=== PATIENT | female | born 1965 | race Two or more races ===

== ENCOUNTER 2020-12-12 02:16 | Inpatient (IN) | payer BC, OTHER ==
[~2020-12-12] VITALS: Ht 182.9 cm; Wt 150.1 kg
--- NOTE | 2020-12-12 03:19 | NUR ---
Patient's mother, Krystal Santizo. phone# [phone]
[2020-12-12 03:21] LABS: CREATININE 2.7 mg/dL (0.6-1.3); POTASSIUM 3.8 mmol/L (3.5-5.1)
--- NOTE | 2020-12-12 03:25 | NUR ---
Reached out to [facility] for medical records. states they will fax over.
[2020-12-12 03:28] LABS: HEMATOCRIT 33.1 % (31.2-41.9); MEAN CORPUSCULAR VOLUME 94.1 fL (75.5-95.3); PLATELET COUNT (AUTO) 230 K/uL (179-408)
--- NOTE | 2020-12-12 04:09 | NUR ---
Pt. admitted to Telemetry, under care of Frieda Hernandez. Dx: Dysarthria, CKD Belongs List completed
[2020-12-12] MEDS ORDERED: METO25TA6 PO (04:16)
[2020-12-12] MEDS ORDERED: CLOP75TA15 PO (04:16)
[2020-12-12] MEDS ORDERED: IRON18TA PO (04:16)
[2020-12-12] MEDS ORDERED: ATOR40TA PO (04:16)
[2020-12-12] MEDS ORDERED: BUPR100T5 PO (04:16)
[2020-12-12] MEDS ORDERED: CHOL400T32 PO (04:16)
[2020-12-12] MEDS ORDERED: VENL75TA4 PO (04:16)
[2020-12-12] MEDS ORDERED: AMLO10TA59 PO (04:16)
[2020-12-12] MEDS ORDERED: LEVO25TA9 PO (04:16)
[2020-12-12] MEDS ORDERED: SPIR25TA6 PO (04:16)
[2020-12-12] MEDS ORDERED: OLAN10TA23 PO (04:16)
[2020-12-12] MEDS ORDERED: HYDR-4075 PO (04:16)
--- NOTE | 2020-12-12 05:16 | NUR ---
Patient brought to Tele unit from ER via gurney accompanied Er nurse.Dx of Dysathria and CRF. AALOx4 .No c/o pain at this time .Denies SOB. On Ra saturating well.Iv on left FA 18 no s/s of infiltration noted. Patient ambulates to bathroom, urinating well.Per patient she had BM yesterday afternoon.SNR on Tele.Skin is intact. Safety measures in place.Call light with in reach. Will endorse to oncoming shift.
[2020-12-12 05:20] VITALS: BP 118/73
[2020-12-12] MEDS ORDERED: BLOOD SUGAR DIAGNOSTIC 1 EACH STRIP VI SCH ×2 (06:00→07:30)
--- NOTE | 2020-12-12 07:32 | NUR ---
Swallow screen done no coughing noted ,able to swallow.Notified Mary Malave to start cardiac diet and Also made aware of patient's admission and to reconcile medication.Stated to follow up in A.M .Endorse to A.m nurse.
[2020-12-12] MEDS: ASPIRIN EC 81 MG TABLET.DR PO SCH (08:26)
[2020-12-12] MEDS ORDERED: VENLAFAXINE HCL 225 MG PO SCH (10:30)
[2020-12-12] MEDS ORDERED: VENL150T PO (10:51)
[2020-12-12] MEDS ORDERED: VENL75TA74 PO (10:51)
[2020-12-12] MEDS: IV 1/2NS 1000 ML 1,000 ML IV PRN (10:53)
--- NOTE | 2020-12-12 11:00 | NUR ---
PHYSICAL THERAPY HERE AND SEEN PATIENT AND SHE AMBULATED IN THE HALLWAY WITH SLOW BUT STEADY GAIT AND BACK TO BED NO SHUFFLING OF GAIT AT THIS TIME
[2020-12-12 11:03] LABS: BILIRUBIN,TOTAL 0.2 mg/dL (0.2-1.0); CREATININE 2.3 mg/dL (0.6-1.3); MAGNESIUM 2.1 mg/dL (1.8-2.4); PHOSPHOROUS 4.1 mg/dL (2.5-4.9); POTASSIUM 3.7 mmol/L (3.5-5.1); TOTAL PROTEIN, SERUM 6.2 g/dL (6.4-8.2)
[2020-12-12 11:12] LABS: THYROID STIMULATING HORMONE 0.711 mIU/mL (0.358-3.740)
[2020-12-12] MEDS: VENLAFAXINE XR 75 MG TAB.ER.24H PO SCH (11:12)
[2020-12-12] MEDS: CLOPIDOGREL 75 MG TABLET PO SCH (11:12)
[2020-12-12] MEDS: VENLAFAXINE XR 150 MG CAP.SR.24H PO SCH (11:13)
--- NOTE | 2020-12-12 11:31 | NUR ---
JEFFREY CARTER CAME OUT UNABLE TO REINSERT MD AWARE WITH ORDER FOR MIDLINE INSERTEDE AND IVF CONTINUED ORDERED.
[2020-12-12] MEDS: hydrALAZINE HCL 10 MG TABLET PO SCH (12:34)
[2020-12-12 12:38] VITALS: BP 118/73
--- NOTE | 2020-12-12 14:25 | NUR ---
DR HINOJOSA HERE AND SEEN PATIENT WITH NO NEW ORDERS AT THIS TIME
--- NOTE | 2020-12-12 14:26 | NUR ---
DR DAY HERE TO SEE PATIENT WITH NO NEW ORDERS AT THIS TIME
--- NOTE | 2020-12-12 15:08 | NUR ---
PATIENT HAS ANEW ORDER FOR CTA BRAIN CALL RECEIVED FROM [facility] STATED UNABLE TO DO THIS TEST BECAUSE PTS CR IS 2.[address] HAYNES WITH NO NEW ORDERS AT THIS TIME
[2020-12-12 16:00] VITALS: BP 114/64
[2020-12-12] MEDS: ATORVASTATIN 40 MG TABLET PO SCH (17:01)
--- NOTE | 2020-12-12 18:00 | NUR ---
AMBULATORY WITH STAND BY ASSIST TO AND FROM THE BATHROOM VOIDING REMAIN ON IVF ORDERED WITH MID LINE RIGHT FOREARM INTACT WITH NO S/S OF INFILTERATION ON SITE ALERT ORIENTED AND VERBALLY RESPONSIVE WITH ADEQUATE SPEECH PATTERN NOT IN DISTRESS WILL CONTINUE TO OBSERVE.
--- NOTE | 2020-12-12 19:30 | NUR ---
Received pt in bed, awake and verbally responsive, able to make needs known. Denies lightheadedness, chest pain, dizziness. No evidence of slurred speech. No s/s of respiratory distress. IVF infusing well. Discussed plan of care with the pt. Pt verbalized understanding. Safety measures initiated, call light within reach.
[2020-12-12 20:00] VITALS: BP 100/63
[2020-12-12] MEDS: OLANZAPINE 2.5 MG TABLET PO SCH (20:32)
[2020-12-12] MEDS ORDERED: OLANZAPINE 7.5 MG PO SCH (21:00)
[2020-12-12] MEDS ORDERED: HYDROCODONE/APAP 5-325MG TABLET PO PRN (21:00)
[2020-12-13] VITALS: BP 124/78
[2020-12-13] MEDS: IV 1/2NS 1000 ML 1,000 ML IV PRN ×2 (01:45→16:43)
[2020-12-13 04:00] VITALS: BP 111/71
[2020-12-13 06:39] LABS: HEMATOCRIT 30.2 % (31.2-41.9); MEAN CORPUSCULAR HEMOGLOBIN 30.5 uug (24.7-32.8); MEAN CORPUSCULAR VOLUME 94.6 fL (75.5-95.3); PLATELET COUNT (AUTO) 227 K/uL (179-408)
[2020-12-13 06:50] LABS: CREATININE 1.8 mg/dL (0.6-1.3); POTASSIUM 4.1 mmol/L (3.5-5.1)
--- NOTE | 2020-12-13 07:00 | NUR ---
Pt slept through the night, no signs of acute distress. Neuro assessment done q4h as ordered, no significant change in condition noted. Pt denies any lightheadedness, dizziness, headache or chest pain. Tolerated due medications well. Safety measures maintained at all times. All needs attended to and met.
--- NOTE | 2020-12-13 08:00 | NUR ---
RECEIVED PATIENT AWAKE ALERT AND ORIENTED DENIES PAIN OR DISCOMFORTS AT THIS TIME ON ROOM AIR WITH NO SHORTNESS OF BREATH ABLE TO VERBALISE NEEDS WITHOUT DIFFICULTY BILATERAL UPPER AND LOWER EXTREMITIES WITH ADEQUATE STRENGTH CALL LIGHTS AND PERSONAL BELONGINGS ARE WITHIN EASY REACH MADE COMFORTABLE AT THIS TIME WILL CONTINUE TO OBSERVE.
[2020-12-13] MEDS: VENLAFAXINE XR 75 MG TAB.ER.24H PO SCH (08:39)
[2020-12-13] MEDS: CLOPIDOGREL 75 MG TABLET PO SCH (08:39)
[2020-12-13] MEDS: FERROUS SULFATE 325 MG TABEC PO SCH (08:40)
[2020-12-13] MEDS: LEVOTHYROXINE SODIUM 25 MCG TABLET PO SCH (08:40)
[2020-12-13] MEDS: SPIRONOLACTONE 25 MG TABLET PO SCH (08:40)
[2020-12-13] MEDS: AMLODIPINE 10 MG TABLET PO SCH (08:40)
[2020-12-13] MEDS: ASPIRIN EC 81 MG TABLET.DR PO SCH (08:40)
[2020-12-13] MEDS: hydrALAZINE HCL 10 MG TABLET PO SCH (08:41)
[2020-12-13] MEDS: VENLAFAXINE XR 150 MG CAP.SR.24H PO SCH (08:42)
[2020-12-13] MEDS ORDERED: CHOLECALCIFEROL 400 UNITS TABLET PO SCH (09:00)
[2020-12-13] MEDS ORDERED: VENLAFAXINE XR 150 MG CAP.SR.24H PO SCH (09:00)
[2020-12-13] MEDS: CHOLECALCIFEROL 1,000 UNIT TABLET PO SCH (09:48)
[2020-12-13 12:00] VITALS: BP 115/67
--- NOTE | 2020-12-13 15:00 | NUR ---
ALERT [id number] DENIES DISCOMFORTS ABLE TO AMBULATE TO THE BATHROOM WITH SBA APPETITE HAS BEEN GOOD AND SWALLOWING HAS BEEN GOOD CIRCULATION TO BOTH UPPER AND LOWER EXT HAS BEEN ADEQUATE NOT IN DISTRESS AT THIS TIME.
[2020-12-13 16:00] VITALS: BP 101/59
--- NOTE | 2020-12-13 17:00 | NUR ---
PATIENT SEEN AND EXAMINED BY DR HINOJOSA WITH NO NEW ORDERS AT THIS TIME.
[2020-12-13] MEDS: ATORVASTATIN 40 MG TABLET PO SCH (17:11)
--- NOTE | 2020-12-13 18:57 | NUR ---
IVF IS IN PROGRESS ORDERED PATIENT IS IN STABLE CONDITION AT THIS TIME.
--- NOTE | 2020-12-13 19:20 | NUR ---
Received pt in bed, awake and verbally responsive, able to make needs known. Pt is very pleasant, denies lightheadedness, dizziness, headache or chest pain. No s/s of respiratory distress. NSR on tele at 71/min. IVF infusing well on MAGALI midline. is here fo a consult. See doctor's notes. Safety measures initiated, call light within reach.
[2020-12-13 20:00] VITALS: BP 137/80
[2020-12-13] MEDS: OLANZAPINE 2.5 MG TABLET PO SCH (20:51)
[2020-12-14 00:09] VITALS: BP 118/76
[2020-12-14 04:09] VITALS: BP 125/85
--- NOTE | 2020-12-14 06:21 | NUR ---
Pt slept through the night, no signs of distress noted. No significant change in condition through the night. Due medications administered and tolerated well by pt. IVF infusing well. Safety measures maintained at all times. All needs attended to and met.
[2020-12-14 06:58] LABS: CREATININE 1.7 mg/dL (0.6-1.3); HEMATOCRIT 30.5 % (31.2-41.9); MAGNESIUM 1.9 mg/dL (1.8-2.4); MEAN CORPUSCULAR HEMOGLOBIN 30.8 uug (24.7-32.8); MEAN CORPUSCULAR VOLUME 93.6 fL (75.5-95.3); PHOSPHOROUS 2.9 mg/dL (2.5-4.9); PLATELET COUNT (AUTO) 225 K/uL (179-408); POTASSIUM 4.4 mmol/L (3.5-5.1)
--- NOTE | 2020-12-14 07:33 | NUR ---
RECEIVED PATIENT AT THE BEGINNING OF THE SHIFT AWAKE ALERT AND ORIENTED ON ROOM AIR WITH NO SHORTNESS OF BREATH REMAIN ON IVF WITH 1/2 NS AT 70 ML/HR WITH NO S/S OF INFILTERATION ON SITE RIGHT UPPER ARM MIDLINE REMAINS INTACT WITH NO S/S OF INFILTERATION ON SITE ABLE TO MOVE BILATERAL UPPER AND LOWER EXTREMITIES ADEQUATELY CALL LIGHTS AND PERSONAL BELONGINGS ARE WITHIN EASY REACH AT THIS TIME WILL CONTINUE TO OBSERVE AND PROVIDE SAFETY AND COMFORT
[2020-12-14] MEDS: CHOLECALCIFEROL 1,000 UNIT TABLET PO SCH (08:35)
[2020-12-14] MEDS: FERROUS SULFATE 325 MG TABEC PO SCH (08:35)
[2020-12-14] MEDS: VENLAFAXINE XR 150 MG CAP.SR.24H PO SCH (08:36)
[2020-12-14] MEDS: LEVOTHYROXINE SODIUM 25 MCG TABLET PO SCH (08:36)
[2020-12-14] MEDS: VENLAFAXINE XR 75 MG TAB.ER.24H PO SCH (08:36)
[2020-12-14] MEDS: SPIRONOLACTONE 25 MG TABLET PO SCH (08:36)
[2020-12-14] MEDS: CLOPIDOGREL 75 MG TABLET PO SCH (08:36)
[2020-12-14] MEDS: ASPIRIN EC 81 MG TABLET.DR PO SCH (08:36)
[2020-12-14] MEDS: hydrALAZINE HCL 10 MG TABLET PO SCH (08:37)
[2020-12-14] MEDS: AMLODIPINE 10 MG TABLET PO SCH (08:37)
--- NOTE | 2020-12-14 08:56 | NUR ---
DR HAJI HERE AND SEEN PATIENT WITH NO NEW ORDERS AT THIS TIME.
[2020-12-14] MEDS: IV 1/2NS 1000 ML 1,000 ML IV PRN (09:00)
[2020-12-14 11:55] VITALS: BP 145/80
[2020-12-14] MEDS ORDERED: METO-356 PO (15:30)
[2020-12-14 15:58] VITALS: BP 139/78
--- NOTE | 2020-12-14 17:05 | NUR ---
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
== END 2020-12-14 17:05 | disposition home or self-care (01) | DRG 69 ==
LOC: ER 02:19 → TELE3 04:48
PROVIDERS: ADMIT Internal Medicine; ATTEND Internal Medicine
PROC: 05H533Z Insertion of Infusion Device into Right Subclavian Vein, Percutaneous Approach (ICD-10-PCS; principal; 2020-12-12)
PROC: B546ZZA Ultrasonography of Right Subclavian Vein, Guidance (ICD-10-PCS; 2020-12-12)
DX: G45.9 Transient cerebral ischemic attack, unspecified (principal); N17.0 Acute kidney failure with tubular necrosis; D68.59 Other primary thrombophilia; F32.3 Major depressive disorder, single episode, severe with psychotic features; Z95.811 Presence of heart assist device; Z68.41 Body mass index [BMI] 40.0-44.9, adult; E03.9 Hypothyroidism, unspecified; E66.01 Morbid (severe) obesity due to excess calories; G89.29 Other chronic pain; N18.2 Chronic kidney disease, stage 2 (mild); Z85.038 Personal history of other malignant neoplasm of large intestine; Z90.49 Acquired absence of other specified parts of digestive tract; Z20.822 Contact with and (suspected) exposure to COVID-19; I12.9 Hypertensive chronic kidney disease with stage 1 through stage 4 chronic kidney disease, or unspecified chronic kidney disease; M19.90 Unspecified osteoarthritis, unspecified site; Z74.09 Other reduced mobility; Z86.73 Personal history of transient ischemic attack (TIA), and cerebral infarction without residual deficits; Z90.5 Acquired absence of kidney; Z87.891 Personal history of nicotine dependence; R47.1 Dysarthria and anarthria; R29.700 NIHSS score 0; R40.2362 Coma scale, best motor response, obeys commands, at arrival to emergency department; R40.2142 Coma scale, eyes open, spontaneous, at arrival to emergency department; R40.2252 Coma scale, best verbal response, oriented, at arrival to emergency department; D63.8 Anemia in other chronic diseases classified elsewhere; I49.9 Cardiac arrhythmia, unspecified
CPT/HCPCS: 36415; 70030-TC; 70450; 71045; 83550; 83690; 83735; 84100; 84443; 85025; 85651; 85730; 93005; A4663; G0378; J3490; J7030

== ENCOUNTER 2021-02-16 22:17 | Inpatient (IN) | payer BC ==
[~2021-02-16] VITALS: Ht 182.9 cm; Wt 137.9 kg
[~2021-02-16 22:17] MED LIST: AMLO10TA59 PO; ATOR40TA PO; BUPR100T5 PO; CHOL400T32 PO; CLOP75TA15 PO; IRON18TA PO; LEVO25TA9 PO; METO-356 PO; OLAN10TA73 PO; SPIR25TA6 PO; VENL150T PO; VENL75TA74 PO
--- NOTE | 2021-02-16 22:30 | NUR ---
PT BIB [facility] FROM HOME C/O AMS. ON REPORT PT WAS FOUND BY FAMILY MEMBER ALTERED. BLOOD SUGAR ON THE FIELD WAS 36, WAS GIVEN IV D10W ON FIELD, NOTED WITH 20 G LEFT HAND. PT A/O X3, NO SOB OR LABORED BREATHING, AFEBRILE. CLEAR SPEECH, COMPLETE SENTENCES.
--- NOTE | 2021-02-16 22:32 | NUR ---
DR. ALEXANDER AT BEDSIDE, MSE IN PROGRESS.
--- NOTE | 2021-02-16 22:45 | NUR ---
XRAY AND LAB AT BEDSIDE.
[2021-02-16] MEDS ORDERED: APIX5TAB PO (22:48)
[2021-02-16] MEDS ORDERED: METOPROLOL TARTRATE 5 MG/5 ML VIAL IVP ONE ×2 (23:15→23:20)
[2021-02-16 23:17] LABS: HEMATOCRIT 37.5 % (31.2-41.9); MEAN CORPUSCULAR HEMOGLOBIN 30.6 uug (24.7-32.8); MEAN CORPUSCULAR VOLUME 96.4 fL (75.5-95.3); PLATELET COUNT (AUTO) 274 K/uL (179-408)
[2021-02-16 23:19] LABS: POTASSIUM 3.7 mmol/L (3.5-5.1)
[2021-02-16 23:25] LABS: BILIRUBIN,DIRECT 0.1 mg/dL (0.0-0.2); BILIRUBIN,TOTAL 0.2 mg/dL (0.2-1.0); TOTAL PROTEIN, SERUM 7.8 g/dL (6.4-8.2)
[2021-02-16] MEDS ORDERED: MISCELLANEOUS MED XX ONE (23:30)
--- NOTE | 2021-02-16 23:32 | NUR ---
Misc. order from Heidi Campos for D5W at 100ml/hr started on 2329, adminstered on left hand 20 g.
[2021-02-17] MEDS ORDERED: METOPROLOL TARTRATE 5 MG/5 ML VIAL IVP ONE ×2 (00:15→00:42)
--- NOTE | 2021-02-17 01:27 | NUR ---
GAVE REPORT TO OSMAN SÁNCHEZ.
[2021-02-17] MEDS ORDERED: Z GUARD REMEDY PASTE 57 GM TUBE TOP PRN (01:45)
[2021-02-17] MEDS ORDERED: MAGNESIUM HYDROXIDE 30 ML LIQUID UDC PO PRN (01:45)
[2021-02-17] MEDS ORDERED: ACETAMINOPHEN 325 MG TABLET PO PRN (01:45)
[2021-02-17] MEDS ORDERED: ONDANSETRON 4 MG/2 ML VIAL IV PRN (01:45)
[2021-02-17] MEDS ORDERED: HYDROCODONE/APAP 5-325MG TABLET PO PRN (01:45)
--- NOTE | 2021-02-17 01:45 | NUR ---
ADMITTED PATIENT IN TELE FLOOR UNDER THE CARE OF RACHELL FERRER. PATIENT ALERT ORIENTED, NO SOB NO CHEST PAIN, WITH BRIDGE PAINTER ON LEFT CHEST. PATIENT AMBULATE WITH ASSIST TO THE TOILET. PATIENT SKIN CLEAR WITH MULTIPLE TATTOOS ON BODY. CONT TO MONITOR.
--- NOTE | 2021-02-17 01:50 | NUR ---
350 ml of D5W adminsitered on LT hand 20 g, still running as pt was admitted. No ASE noted.
--- NOTE | 2021-02-17 01:58 | NUR ---
Pt. admitted to tele room 307 , under care of RACHELL Carranza Dx: hypoglycemia Belongs List completed
[2021-02-17] MEDS: IV D5 1/2 NS 1000 ML 1,000 ML IV PRN ×2 (02:24→21:02)
[2021-02-17] MEDS: BLOOD SUGAR DIAGNOSTIC 1 EACH STRIP VI SCH ×5 (05:23→21:02)
--- NOTE | 2021-02-17 05:56 | NUR ---
PATIENT ALERT ORIENTED, NO SOB NO CHEST PAIN, NO S/S OF HYPOGYLCEMIA NOTED, VS/ STABLE, CONT TO MONITOR.
[2021-02-17] MEDS: PANTOPRAZOLE SODIUM 40 MG TABLET.DR PO SCH (06:24)
[2021-02-17] MEDS: LEVOTHYROXINE SODIUM 25 MCG TABLET PO SCH (06:49)
--- NOTE | 2021-02-17 08:00 | NUR ---
RECEIVED REPORT FROM ADULT DAYCARE COORDINATOR NURSE. PT ALERT AND ORIENTED X 4. 20 G IV ACCESS ON RIGHT HAND. AMBULATORY WITHOUT ASSISTANCE. SINUS RHYTHM. BED LOW AND LOCKED WITH ALARM ON. CALL LIGHT WITHIN REACH. WILL CONTINUE TO MONITOR.
[2021-02-17 08:37] LABS: HEMATOCRIT 37.4 % (31.2-41.9); MEAN CORPUSCULAR HEMOGLOBIN 31.2 uug (24.7-32.8); PLATELET COUNT (AUTO) 251 K/uL (179-408)
[2021-02-17 08:52] LABS: BILIRUBIN,TOTAL 0.2 mg/dL (0.2-1.0); CREATININE 1.9 mg/dL (0.6-1.3); POTASSIUM 4.4 mmol/L (3.5-5.1); TOTAL PROTEIN, SERUM 7.6 g/dL (6.4-8.2)
[2021-02-17] MEDS ORDERED: AMLODIPINE 10 MG TABLET PO SCH (09:00)
[2021-02-17] MEDS: METOPROLOL SUCCINATE XL 25 MG TAB.SR.24H PO SCH (09:56)
[2021-02-17] MEDS: CHOLECALCIFEROL 1,000 UNIT TABLET PO SCH (09:56)
[2021-02-17] MEDS: APIXABAN 5 MG TABLET PO SCH ×2 (09:57→18:33)
[2021-02-17 11:30] VITALS: BP 112/56
[2021-02-17 16:00] VITALS: BP 97/58
[2021-02-17 20:00] VITALS: BP 118/81
[2021-02-17] MEDS ORDERED: BUPR450T3 PO (20:36)
[2021-02-17] MEDS ORDERED: ATORVASTATIN 40 MG TABLET PO SCH (21:00)
[2021-02-17] MEDS ORDERED: buPROPion SR 100 MG TABLET.SA PO SCH (21:00)
[2021-02-17] MEDS ORDERED: buPROPion XL 150 MG TAB.SR.24H PO SCH (21:00)
[2021-02-18] MEDS: BLOOD SUGAR DIAGNOSTIC 1 EACH STRIP VI SCH ×5 (00:16→16:42)
[2021-02-18 04:00] VITALS: BP 122/41
--- NOTE | 2021-02-18 05:44 | NUR ---
Pt slept throughout the night. Denies pain or SOB. Refused midnight vitals. Able to make needs known. IV site intact and running ordered fluids. Blood sugar monitored, given orange juice as needed for low glucose. Safety and comfort provided. No other issues or concerns at this time, will endorse to day shift.
[2021-02-18 06:37] LABS: HEMATOCRIT 31.4 % (31.2-41.9); MEAN CORPUSCULAR HEMOGLOBIN 31.6 uug (24.7-32.8); MEAN CORPUSCULAR VOLUME 96.9 fL (75.5-95.3); PLATELET COUNT (AUTO) 205 K/uL (179-408)
[2021-02-18] MEDS: LEVOTHYROXINE SODIUM 25 MCG TABLET PO SCH (06:47)
[2021-02-18] MEDS: PANTOPRAZOLE SODIUM 40 MG TABLET.DR PO SCH (06:47)
[2021-02-18 07:07] LABS: CREATININE 1.8 mg/dL (0.6-1.3); MAGNESIUM 1.8 mg/dL (1.8-2.4); PHOSPHOROUS 4.3 mg/dL (2.5-4.9); POTASSIUM 4.2 mmol/L (3.5-5.1)
[2021-02-18 07:39] LABS: THYROID STIMULATING HORMONE 2.351 mIU/mL (0.358-3.740)
--- NOTE | 2021-02-18 08:00 | NUR ---
PT IN BED RESTING, PT ON ROOM AIR, NO SIGNS OF DISTRESS, NO REPORTS OF PAIN. BED LOW AND LOCKED, CALL LIGHT WITHIN REACH, A/OX4, BG UNDER CONTROL AT THIS TIME. WILL CONTINUE WITH PLAN OF CARE.
[2021-02-18] MEDS ORDERED: VENLAFAXINE XR 150 MG CAP.SR.24H PO SCH (09:00)
[2021-02-18] MEDS ORDERED: buPROPion XL 150 MG TAB.SR.24H PO SCH (09:00)
[2021-02-18] MEDS ORDERED: SPIRONOLACTONE 25 MG TABLET PO SCH (09:00)
[2021-02-18] MEDS ORDERED: AMLODIPINE 10 MG TABLET PO SCH (09:00)
[2021-02-18] MEDS ORDERED: AMLODIPINE 5 MG TABLET PO SCH (09:00)
[2021-02-18] MEDS: CHOLECALCIFEROL 1,000 UNIT TABLET PO SCH (09:28)
[2021-02-18] MEDS: APIXABAN 5 MG TABLET PO SCH ×2 (09:29→17:20)
[2021-02-18] MEDS: METOPROLOL SUCCINATE XL 25 MG TAB.SR.24H PO SCH (09:35)
[2021-02-18 11:49] VITALS: BP 125/81
--- NOTE | 2021-02-18 13:00 | NUR ---
DC'd from Tele. pt is stable and cooperative. sinus rhythm. urine specimen collected and sent to lab
[2021-02-18 13:57] LABS: *BILIRUBIN,URIN NEGATIVE (NEGATIVE); *CLARITY,URINE SLIGHTLY CLOUDY (CLEAR); *COLOR,URINE YELLOW (YELLOW); *KETONES,URINE NEGATIVE (NEGATIVE); *UROBILINOGEN,URINE 0.2 E.U./dl (NORMAL); LEUKOCYTE ESTERASE ,URINE 2+ (NEGATIVE); NITRITE, URINE NEGATIVE (NEGATIVE); PH,URINE 5.5 (5.0-8.0); UGLUCOSE NEGATIVE (NEGATIVE)
[2021-02-18 13:58] LABS: *BLOOD, URINE TRACE LYSED (NEGATIVE)
[2021-02-18 14:08] LABS: BACTERIA,URINE FEW /HPF (NONE SEEN); SQUAMOUS EPITHELIAL CELL,UR FEW /HPF (NONE SEEN)
[2021-02-18] MEDS ORDERED: CEPH500C2 PO (15:35)
[2021-02-18] MEDS ORDERED: AMLO-212 PO (15:41)
[2021-02-18 16:00] VITALS: BP 138/88
--- NOTE | 2021-02-18 17:50 | NUR ---
PT DISCHARGED HOME WITH ALL BELONGINGS, CAME IN FOR HYPOGLYCEMIA, A/OX4, PT IS AMBULATORY, BRP, PT HAS AFIB JUKEBOX OPERATOR PRESCRIBED TO HER BY HER PCP, . PT ON ROOM AIR, NO SIGNS OF DISTRESS, NO REPORTS OF PAIN, PT COOPERATIVE. PT GIVEN EXIT CARE INSTRUCTIONS AND FOLLOW UP INFORMATION. PT LEFT WITH PAPER WORK IN HAND AND NEW PRESCRIPTIONS. PT LEFT WITH BROTHER VIA PRIVATE CARE.
== END 2021-02-18 17:50 | disposition home or self-care (01) | DRG 640 ==
LOC: ER 22:19 → TELE3 02-17 01:32 → MEDSURG3 02-18 11:48
PROVIDERS: ADMIT Registered Nurse; ATTEND Registered Nurse
DX: E16.2 Hypoglycemia, unspecified (principal); G93.41 Metabolic encephalopathy; Z68.41 Body mass index [BMI] 40.0-44.9, adult; N39.0 Urinary tract infection, site not specified; E66.01 Morbid (severe) obesity due to excess calories; D63.1 Anemia in chronic kidney disease; E03.9 Hypothyroidism, unspecified; F41.9 Anxiety disorder, unspecified; E78.5 Hyperlipidemia, unspecified; F32.9 Major depressive disorder, single episode, unspecified; I48.0 Paroxysmal atrial fibrillation; Z90.49 Acquired absence of other specified parts of digestive tract; Z20.822 Contact with and (suspected) exposure to COVID-19; Z86.73 Personal history of transient ischemic attack (TIA), and cerebral infarction without residual deficits; Z85.038 Personal history of other malignant neoplasm of large intestine; Z90.5 Acquired absence of kidney; N18.9 Chronic kidney disease, unspecified; Z79.01 Long term (current) use of anticoagulants; I12.9 Hypertensive chronic kidney disease with stage 1 through stage 4 chronic kidney disease, or unspecified chronic kidney disease; D72.829 Elevated white blood cell count, unspecified; D50.9 Iron deficiency anemia, unspecified; B96.89 Other specified bacterial agents as the cause of diseases classified elsewhere
CPT/HCPCS: 36415; 70030-TC; 71045; 74150; 76770; 82533; 83605; 83735; 84100; 84443; 84681; 85025; 85730; 87086; 93005; 93307; 97161; A4663; G0378; J3490; J7060

== ENCOUNTER 2023-10-10 13:52 | Emergency (ER) | payer BC ==
[~2023-10-10] VITALS: Ht 182.9 cm; Wt 204.1 kg
[~2023-10-10 13:52] MED LIST changes: +AMLO-212 PO; -AMLO10TA59 PO; +APIX5TAB PO; -BUPR100T5 PO; +BUPR450T3 PO; +CEPH500C2 PO; -CLOP75TA15 PO
[2023-10-10 14:23] LABS: BASOPHILS % (AUTO) 0.7 % (0.0-2.0); EOSINOPHILS # (AUTO) 0.1 K/uL (0.0-0.7); EOSINOPHILS % (AUTO) 2.3 % (0.0-7.0); HEMATOCRIT 40.3 % (31.2-41.9); HEMOGLOBIN 13.2 g/dL (10.9-14.3); LYMPHOCYTES # (AUTO) 1.1 K/uL (0.8-4.8); LYMPHOCYTES % (AUTO) 17.9 % (20.5-51.5); MEAN CORPUSCULAR HEMOGLOBIN 30.5 uug (24.7-32.8); MEAN CORPUSCULAR HGB CONC 33 g/dL (32.3-35.6); MEAN CORPUSCULAR VOLUME 93.4 fL (75.5-95.3); MONOCYTES # (AUTO) 0.5 K/uL (0.1-1.30); MONOCYTES % (AUTO) 7.8 % (0.0-11.0); NEUTROPHILS # (AUTO) 4.3 K/uL (1.8-8.9); NEUTROPHILS % (AUTO) 71.3 % (38.5-71.5); PLATELET COUNT (AUTO) 259 K/uL (179-408); RED BLOOD CELL COUNT(AUTO) 4.32 MIL/uL (3.63-4.92); RED CELL DISTRIBUTION WIDTH 14.4 % (12.3-17.7); WHITE BLOOD COUNT (AUTO) 6.1 K/uL (3.8-11.8)
[2023-10-10 14:31] LABS: CALCIUM 9.5 mg/dL (8.5-10.1); CARBON DIOXIDE 20 mmol/L (21-32); CHLORIDE 105 mmol/L (98-107); CREATININE 1.9 mg/dL (0.6-1.3); GLUCOSE 147 mg/dL (74-106); POTASSIUM 4.1 mmol/L (3.5-5.1); SODIUM SERUM 141 mmol/L (136-145); UREA NITROGEN, BLOOD 14 mg/dL (7-18)
[2023-10-10] MEDS ORDERED: ONDANSETRON 4 MG/2 ML VIAL ONE (14:38)
[2023-10-10 14:44] LABS: ALANINE AMINOTRANSFERASE 67 U/L (14-59); ALBUMIN 3.2 g/dL (3.4-5.0); ALKALINE PHOSPHATASE 548 U/L (50-136); ASPARTATE AMINOTRANSFERASE 15 U/L (15-37); BILIRUBIN,DIRECT 0.1 mg/dL (0.0-0.2); BILIRUBIN,TOTAL 0.4 mg/dL (0.2-1.0); NT-PRO BNP 877 pg/mL (0-125); TOTAL PROTEIN, SERUM 7.8 g/dL (6.4-8.2)
[2023-10-10] MEDS: ONDANSETRON 4 MG/2 ML VIAL IV ONE (14:47)
[2023-10-10 15:45] VITALS: BP 141/87; O2SAT 97
== END 2023-10-10 15:46 | disposition home or self-care (01) ==
LOC: ER 13:52
DX: R53.83 Other fatigue (principal); R53.1 Weakness; R11.0 Nausea; R06.00 Dyspnea, unspecified; N18.9 Chronic kidney disease, unspecified; I10 Essential (primary) hypertension; E78.5 Hyperlipidemia, unspecified; I48.91 Unspecified atrial fibrillation; F32.A Depression, unspecified; E03.9 Hypothyroidism, unspecified; Z86.73 Personal history of transient ischemic attack (TIA), and cerebral infarction without residual deficits; Z79.899 Other long term (current) drug therapy; Z68.44 Body mass index [BMI] 60.0-69.9, adult
CPT/HCPCS: 99285; 96374; 71045; 80076; 80048; 83880; 85025; 84484; 36415; 93005; J2405; A4606; A4663